=== PATIENT | female | born 1970 | race Caucasian/White ===

== ENCOUNTER 2019-07-13 08:41 | Outpatient (CLI) | payer OTHER, SELFPAY ==
--- NOTE | 2019-07-13 08:46 | US_ITS ---
WS: [id number] RIGHT DIGITAL MAMMOGRAPHY WITH CAD CLINICAL INFORMATION: R92.8 Other abnormal and inconclusive findings on diagnos... COMPARISON: June 09, 2019 TECHNIQUE: 2 views of the right breast were obtained. FINDINGS: The right breast is composed of heterogeneous fibroglandular density tissue, which can limit the dete ction of small underlying mass lesions. Previously described 12.5 mm lobulated asymmetric density upp er outer right breast compresses out on the spot compression views. Ultrasound is pending. ULTRASOUND BREAST RIGHT TECHNIQUE: Ultrasound right breast focused area of concern. CLINICAL INFORMATION: R92.8 Other abnormal and inconclusive findings on diagnos... COMPARISON: None. FINDINGS: Ultrasound right breast at the 2:00 position 3 cm from the nipple. Hypoechoic complex cyst with some internal debris and through transmission. Cyst measures 5.9 x 5.2 x 6.4 mm. This has a benign appeara nce. US/US breast RT limited* [id number] IMPRESSION: BI-RADS: 2-Benign FOLLOW UP: 1 Year Follow-up Recommend return to annual screening mammography.
--- NOTE | 2019-07-13 09:00 | MM_ITS ---
WS: [id number] RIGHT DIGITAL MAMMOGRAPHY WITH CAD CLINICAL INFORMATION: R92.8 Other abnormal and inconclusive findings on diagnos... COMPARISON: June 09, 2019 TECHNIQUE: 2 views of the right breast were obtained. FINDINGS: The right breast is composed of heterogeneous fibroglandular density tissue, which can limit the dete ction of small underlying mass lesions. Previously described 12.5 mm lobulated asymmetric density upp er outer right breast compresses out on the spot compression views. Ultrasound is pending. ULTRASOUND BREAST RIGHT TECHNIQUE: Ultrasound right breast focused area of concern. CLINICAL INFORMATION: R92.8 Other abnormal and inconclusive findings on diagnos... COMPARISON: None. FINDINGS: Ultrasound right breast at the 2:00 position 3 cm from the nipple. Hypoechoic complex cyst with some internal debris and through transmission. Cyst measures 5.9 x 5.2 x 6.4 mm. This has a benign appeara nce. MM/[place] [id number] IMPRESSION: BI-RADS: 2-Benign FOLLOW UP: 1 Year Follow-up Recommend return to annual screening mammography.
== END 2019-07-13 08:42 | disposition home or self-care (01) ==
LOC: RADSHAW 08:43
PROVIDERS: Family Provider Family Medicine; PCP Family Medicine; Visit Provider Family Medicine
DX: R92.8 Other abnormal and inconclusive findings on diagnostic imaging of breast (principal)
CPT/HCPCS: 76642; 77065

== ENCOUNTER 2020-03-16 09:13 | Emergency (ER) | payer OTHER, SELFPAY ==
[2020-03-16 09:23] VITALS: BMI 29.9
--- NOTE | 2020-03-16 09:46 | W.ED.ANIMALB ---
HPI - Animal Bite General: Chief Complaint: Animal Bite Stated Complaint: RIGHT MIDDLE FINGER DOG BITE Time Seen by Provider: 03/16/20 09:21 Source: patient Mode of arrival: ambulatory Limitations: no limitations History of Present Illness: HPI narrative: 49-year-old female patient presents to the emergency department with a dog bite to the right third digit. Patient states she has increased pain and swelling. Patient states this happened on Thursday. Patient states she saw her primary care physician was started on Augmentin. Patient's tetanus shot is up-to-date. Patient states she was getting some drainage from this finger but woke up today with increased pain and swelling. Patient denies any fever. Patient denies any pain to the tendon sheath area. MD complaint: animal bite Animal: dog Description of animal: household pet Mechanism: bite Location: other (Right hand third digit) Pain description: constant Context: unprovoked Associated symptoms: Reports no associated symptoms; Deny chills, fever(s) or headache(s) Treatments prior to arrival: wound dressing(s) and other (Augmentin) Related Data: Patient tetanus UTD: Yes Review of Systems General: Reports: 10 or more systems reviewed and unremarkable except in HPI and below Const: Denies: fever(s), chills or body aches Resp: Denies: dyspnea, productive cough or non-productive cough GI: Denies: abdominal pain, nausea or vomiting Musc: Denies: neck pain or back pain Skin/Breast: Reports: other (Patient has a what appears to be a dog bite to her right hand third digit at the PIP joint patient has erythematous edematous area there is some fluctuation and pointing noted at the PIP joint) Neuro: Denies: headache(s), numbness in extremities or weakness in extremities Psych: Denies: suicidal ideation or homicidal ideation PFS ED PFSH: Medical History Essential hypertension No pertinent past medical history Patient denies any past medical history of diabetes, heart, lung, liver, kidney, thyroid, bleeding, or clotting problems, PE/DVT. PCP: Dr. Conklin Surgical History History of removal of skin mole States that she has a small mole on her mons that was removed and it came back pre-malignant and so she had to have surgery for removal of a better margin denies any anesthesia problems. -This was performed in the [facility]. History of shoulder surgery Arthroscopic right shoulder surgery for torn biceps performed in October 2018 Status post unilateral salpingo-oophorectomy 12/30/2018--->Laparoscopic left salpingo-oophorectomy, drainage of right ovarian cyst, performed by Dr. Perez at [facility], [place], [place]. Pathology showed normal fallopian tube with benign ovarian cyst consistent with a follicular cyst. Family History Father Diabetes Stroke Mother Hypertension Denies family history of Colon cancer Ovarian cancer Heart disease Hyperlipidemia Breast cancer Uterine cancer Thyroid condition Social History Smoking and tobacco status: former smoker Alcohol intake: current Additional social history: - Tobacco Use: Smoked one cigar a month starting at age 35; quit in 2013 at the age of 40. Denies use of any tobacco products since then. 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 Physical Exam Const: COMMON NORMALS: no acute distress, average body habitus, patient oriented x3, no limitations, healthy appearing, alert and well nourished Resp: COMMON NORMALS: normal respiratory effort and No retractions Cardio: COMMON NORMALS: regular rate and regular rhythm RATE: regular rate RHYTHM: regular rhythm Extremity: RIGHT UPPER EXTREMITY: Yes hand & digits Right hand and digits: Yes inspection (Erythematous and edematous there is fluctuation and pointing noted to the PIP joint), Yes neurovascular exam (Neurovascularly intact) and Yes tendon exam (Tendon appears intact patient does not have any tendon sheath pain) Neuro: COMMON NORMALS: patient oriented x3 SENSORIUM/ORIENTATION: Yes alert Procedures Abscess I/D Site: hand (right 3rd digit) Local Anesthetic: lidocaine 1% Amount of anesthesia used (mL): 8 Technique: incised with #11 blade Amount of fluid expressed (mL): 5 MDM - Animal Bite MDM Narrative: Medical decision making narrative: Pt is well appearing non toxic and in no acute distress. Pt has fluctuance and pointing c/w abscess of the PIP joint to right 3rd digit. icision and drainge was performed please see procedure note. Pt is already taking Aygmentin and started this am. Pt is NVI distally pt denies pain to tenddon sheath. I will have patient continue antibiotics and return in 24-48 hours ffor wound recheck and packing removal. Tetanus UTD. Differential Diagnosis: Differential diagnosis animal bite: Likely bite by animal Medical Records: Attestation: I reviewed the patient's medical records. Lab Data: Attestation: I reviewed the patient's lab results. Discharge Plan Discharge Patient Disposition: Home Clinical Impression: Cellulitis of right middle finger Dog bite Qualifiers: Encounter type: initial encounter Qualified Code(s): W54.0XXA - Bitten by dog, initial encounter Condition: Stable Prescriptions: No Action losartan 25 mg tablet 25 mg PO ONCE RF: 0 amoxicillin-pot clavulanate [Augmentin] 875-125 mg tablet 1 tab PO BID Qty: 20 RF: 0 Contrave 8-90 mg tablet extended release See Rx Instructions PO QAM Qty: 70 RF: 0 Complete Multivitamin Tablet 1 tab PO DAILY RF: 0 vitamin B complex [B Complex-Vitamin B12] Tablet 1 tab PO DAILY RF: 0 ferrous sulfate PO RF: 0 Mirena 20 mcg/24 hours (5 yrs) 52 mg intrauterine device INTRAUTERI RF: 0 Discharge Orders: Discharge Order (Routine); Ordered 03/16/20 Ordered By: Sheila Whittington Referrals: Tram Conklin DO [Primary Care Provider] - Activity Restrictions/Additional Instructions: Please return to ER in 24-48 hours for wound recheck and packing removal or sooner if needed. Please continue to take antibiotics as prescribed Use warm compresses Coding Level of Care Code ED Manager Security for Chg Fwd Exam Expanded Problem Focused
[2020-03-16 10:36] VITALS: BP 148/90; PULSE 76; RESP 18; O2SAT 97
== END 2020-03-16 10:36 | disposition home or self-care (01) ==
PROVIDERS: Emergency Provider Registered Nurse; Family Provider Family Medicine; PCP Family Medicine
DX: S61.252A Open bite of right middle finger without damage to nail, initial encounter (principal); L03.011 Cellulitis of right finger; W54.0XXA Bitten by dog, initial encounter; Z87.891 Personal history of nicotine dependence; I10 Essential (primary) hypertension
CPT/HCPCS: 12345; 26010; 99281; 99282; A6446

== ENCOUNTER 2020-03-18 09:41 | Emergency (ER) | payer OTHER, SELFPAY ==
[2020-03-18 10:02] VITALS: BP 164/82; PULSE 63; RESP 18; TEMP 36.9; O2SAT 98; BMI 29.9
--- NOTE | 2020-03-18 10:08 | W.ED.RECABL ---
HPI - Recheck/Abnormal Lab/Rx General: Chief Complaint: Recheck/Abnormal Lab/Rx Stated Complaint: PACKING REMOVAL Time Seen by Provider: 03/18/20 09:59 Source: patient Mode of arrival: ambulatory Limitations: no limitations History of Present Illness: MD complaint: wound re-check Initial visit (ago): day(s) (2) Initial visit for: abscess Returns today for: wound recheck Symptoms since prior visit: no new symptoms and improved Associated symptoms: none Review of Systems General: Reports: 10 or more systems reviewed and unremarkable except in HPI and below Const: Denies: fever(s) or chills Resp: Denies: dyspnea or productive cough Musc: Denies: joint pain or joint swelling Skin/Breast: Reports: other (abscess to right 3rd digit ) PFSH ED PFSH: Medical History (Updated 03/18/20 @ 10:07 by Sheila Whittington) Essential hypertension No pertinent past medical history Patient denies any past medical history of diabetes, heart, lung, liver, kidney, thyroid, bleeding, or clotting problems, PE/DVT. PCP: Dr. Conklin Surgical History History of removal of skin mole States that she has a small mole on her mons that was removed and it came back pre-malignant and so she had to have surgery for removal of a better margin denies any anesthesia problems. -This was performed in the [facility]. History of shoulder surgery Arthroscopic right shoulder surgery for torn biceps performed in October 2018 Status post unilateral salpingo-oophorectomy 12/30/2018--->Laparoscopic left salpingo-oophorectomy, drainage of right ovarian cyst, performed by Dr. Perez at [facility], [place], [place]. Pathology showed normal fallopian tube with benign ovarian cyst consistent with a follicular cyst. Family History Father Diabetes Stroke Mother Hypertension Denies family history of Colon cancer Ovarian cancer Heart disease Hyperlipidemia Breast cancer Uterine cancer Thyroid condition Social History Smoking and tobacco status: former smoker Alcohol intake: current Additional social history: - Tobacco Use: Smoked one cigar a month starting at age 35; quit in 2013 at the age of 40. Denies use of any tobacco products since then. 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 Exam Const: COMMON NORMALS: no acute distress, average body habitus, patient oriented x3, no limitations, healthy appearing, alert and well nourished Extremity: RIGHT UPPER EXTREMITY: Yes hand & digits (3rd dgit - packing removed and erythema and edema is much improved ) Right hand and digits: Yes ROM exam (normal) and Yes neurovascular exam (NVI) Neuro: COMMON NORMALS: patient oriented x3 SENSORIUM/ORIENTATION: Yes alert Course Vital Signs: Vital signs: Vital Signs Temperature 98.4 F 03/18/20 10:02 Pulse Rate 63 03/18/20 10:02 Respiratory Rate 18 03/18/20 10:02 Blood Pressure 164/82 03/18/20 10:02 Pulse Oximetry 98 03/18/20 10:02 MDM - Recheck/Abnormal Lab/Rx MDM Narrative: Medical decision making narrative: Pt is well appearing non toxic and in no acute distress 3rd dgit - packing removed and erythema and edema is much improved Pt has good ROM Pt is NVI distally Pt states pain is very minimal Pt advised to continue her coarse of antibiotics Pt advised to keep clean and dry and use antibiotic ointment Discharge Plan Discharge Patient Disposition: Home Clinical Impression: Encounter for wound re-check Condition: Stable Prescriptions: No Action losartan 25 mg tablet 25 mg PO ONCE RF: 0 amoxicillin-pot clavulanate [Augmentin] 875-125 mg tablet 1 tab PO BID Qty: 20 RF: 0 Contrave 8-90 mg tablet extended release See Rx Instructions PO QAM Qty: 70 RF: 0 Complete Multivitamin Tablet 1 tab PO DAILY RF: 0 vitamin B complex [B Complex-Vitamin B12] Tablet 1 tab PO DAILY RF: 0 ferrous sulfate PO RF: 0 Mirena 20 mcg/24 hours (5 yrs) 52 mg intrauterine device INTRAUTERI RF: 0 Discharge Orders: Discharge Order (Routine); Ordered 03/18/20 Ordered By: Sheila Whittington Referrals: Tram Conklin DO [Primary Care Provider] - Discharge Diet: Advance as tolerated Discharge Activity: Resume usual activity Activity Restrictions/Additional Instructions: Please keep wound dry and clean and apply antibiotic ointment Please continue course of antibiotics until completed Please return with any worsening of infection swelling, fever, increased pain or any other concerning symptoms Coding Level of Care Code ED Car Tracer for Eli Cruz
== END 2020-03-18 10:11 | disposition home or self-care (01) ==
PROVIDERS: Emergency Provider Registered Nurse; PCP Family Medicine
DX: Z48.00 Encounter for change or removal of nonsurgical wound dressing (principal); I10 Essential (primary) hypertension; Z87.891 Personal history of nicotine dependence
CPT/HCPCS: 12345; 99281

== ENCOUNTER 2020-03-28 18:30 | Emergency (ER) | payer OTHER, SELFPAY ==
[2020-03-28 18:37] VITALS: BP 184/105; PULSE 73; RESP 18; TEMP 36.7; O2SAT 98; BMI 29.5
--- NOTE | 2020-03-28 21:19 | ED_ITS ---
HPI - Allergic Reaction General: Chief complaint: Allergic Reaction Stated complaint: SENT BY [facility]--POSS ANAPHYLACTIC SHOCK Time Seen by Provider: 03/28/20 21:14 Source: patient Mode of arrival: ambulatory Limitations: no limitations History of Present Illness: HPI narrative: 49-year-old female states that she started having a rash to her trunk and extremities roughly 3 to 4 hours ago. It is urticarial in appearance. She states that it is quite pruritic. She states she has had some slight tightness in her throat this improved. She states she is not came into contact with anything that she knows she is allergic to. Patient sent here from urgent care for her allergic reaction. She denies any shortness of breath currently. Denies any worsening improving factors. She did take 2 Benadryl's at home roughly 3 hours ago. Associated symptoms: Deny abdominal pain, nausea or vomiting Review of Systems Const: Denies: fever(s), chills, body aches or change in appetite Eyes: Denies: blurry vision or eye discomfort ENMT: Denies: throat pain or dental pain Card: Denies: chest pain Resp: Denies: dyspnea GI: Denies: abdominal pain, nausea, vomiting or diarrhea : Denies: dysuria Musc: Denies: neck pain or back pain Skin/Breast: Reports: rash and pruritus Neuro: Denies: headache(s) Psych: Denies: depression Navi/Lymph: Denies: easy bruising All/Imm: Reports: urticaria PFSH ED PFSH: Medical History Essential hypertension No pertinent past medical history Patient denies any past medical history of diabetes, heart, lung, liver, kidney, thyroid, bleeding, or clotting problems, PE/DVT. PCP: Dr. Conklin Surgical History History of removal of skin mole States that she has a small mole on her mons that was removed and it came back pre-malignant and so she had to have surgery for removal of a better margin denies any anesthesia problems. -This was performed in the [facility]. History of shoulder surgery Arthroscopic right shoulder surgery for torn biceps performed in October 2018 Status post unilateral salpingo-oophorectomy 12/30/2018--->Laparoscopic left salpingo-oophorectomy, drainage of right ovarian cyst, performed by Dr. Perez at [facility], [place], [place]. Pathology showed normal fallopian tube with benign ovarian cyst consistent with a follicular cyst. Family History Father Diabetes Stroke Mother Hypertension Denies family history of Colon cancer Ovarian cancer Heart disease Hyperlipidemia Breast cancer Uterine cancer Thyroid condition Social History Smoking and tobacco status: former smoker Alcohol intake: current Additional social history: - Tobacco Use: Smoked one cigar a month starting at age 35; quit in 2013 at the age of 40. Denies use of any tobacco products since then. 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 Exam Const: COMMON NORMALS: no acute distress, patient oriented x3 and healthy appearing HENMT: COMMON NORMALS: normocephalic and atraumatic HEAD & SCALP: normocephalic and atraumatic Eye: COMMON NORMALS: Equal, round and reactive pupils present and EOMs intact bilaterally PUPIL: Yes Equal, round and reactive pupils present Neck/C-Spine: COMMON NORMALS: full ROM and supple Chest: COMMONS NORMALS: normal inspection of the chest and normal palpation of entire chest wall Resp: COMMON NORMALS: normal respiratory effort, No retractions, No use of accessory muscles and clear to auscultation bilaterally AUSCULTATION: clear to auscultation bilaterally Cardio: COMMON NORMALS: regular rate, regular rhythm and No murmurs present (Cardio) RATE: regular rate RHYTHM: regular rhythm GI: COMMON NORMALS: Normal to inspection, nondistended, normoactive bowel sounds present, Soft to palpation, non-tender and no masses PALPATION: Yes Soft to palpation Extremity: COMMON NORMALS: normal to inspection and full ROM Neuro: COMMON NORMALS: patient oriented x3, moves all extremities and no focal motor deficits Psych: COMMON NORMALS: mental status grossly normal, Normal thought process present and cooperative THOUGHT PROCESS: Normal thought process present Skin: COMMON NORMALS: no wounds NARRATIVE SKIN EXAM: Urticarial rash to trunk and extremities Course Vital Signs: Vital signs: Vital Signs Temperature 98.1 F 03/28/20 18:37 Pulse Rate 78 03/28/20 21:56 Respiratory Rate 18 03/28/20 21:56 Blood Pressure 159/90 03/28/20 21:56 Pulse Oximetry 97 03/28/20 21:58 MDM - Allergic Reaction MDM Narrative: Medical decision making narrative: Patient presents here with rash is urticarial in nature and likely allergic. She has no signs of systemic symptoms. Patient is much improved after Benadryl and Medrol. We will place her on steroids at home and she is to follow-up with PCP and return if worsening. Discharge Plan Discharge Patient Disposition: Home Clinical Impression: Urticaria Condition: Stable Prescriptions: New prednisone 50 mg tablet 50 mg PO DAILY Qty: 5 RF: 0 No Action losartan 25 mg tablet 25 mg PO ONCE RF: 0 amoxicillin-pot clavulanate [Augmentin] 875-125 mg tablet 1 tab PO BID Qty: 20 RF: 0 Contrave 8-90 mg tablet extended release See Rx Instructions PO QAM Qty: 70 RF: 0 Complete Multivitamin Tablet 1 tab PO DAILY RF: 0 vitamin B complex [B Complex-Vitamin B12] Tablet 1 tab PO DAILY RF: 0 ferrous sulfate PO RF: 0 Mirena 20 mcg/24 hours (5 yrs) 52 mg intrauterine device INTRAUTERI RF: 0 Discharge Orders: Discharge Order (Routine); Ordered 03/28/20 Ordered By: Guille Bunch Referrals: Tram Conklin DO [Primary Care Provider] - 1-3 days Discharge Diet: Advance as tolerated Discharge Activity: Resume usual activity Patient Instructions: Urticaria (ED) Coding Level of Care Code ED Biology Faculty Member for Rachelg Fwd Exam Comprehensive
[2020-03-28] MEDS: diphenhydrAMINE 50 mg/mL SDV 1mL IVP (21:35)
[2020-03-28] MEDS: famotidine 20 mg/2 mL INJ 40 MG IVP (21:36)
[2020-03-28 21:56] VITALS: BP 159/90; PULSE 78; RESP 18; O2SAT 97
[2020-03-28 21:58] VITALS: O2SAT 97
[2020-03-28 22:27] VITALS: O2SAT 97
== END 2020-03-28 22:28 | disposition home or self-care (01) ==
PROVIDERS: Emergency Provider Emergency Medicine; PCP Family Medicine
DX: L50.9 Urticaria, unspecified (principal); I10 Essential (primary) hypertension; Z87.891 Personal history of nicotine dependence
CPT/HCPCS: 12345; 96374; 96375; 99283; J1200; J2930; J3490

== ENCOUNTER 2020-07-18 08:23 | Outpatient (CLI) | payer OTHER, SELFPAY ==
--- NOTE | 2020-07-18 08:31 | MM_ITS ---
WS: [id number] BILATERAL DIGITAL SCREENING MAMMOGRAPHY WITH CAD CLINICAL INFORMATION: SCREEN HISTORY: Screening mammogram. No current complaints. COMPARISON: July 13, 2019 and 06/09/2019 TECHNIQUE: Bilateral CC and MLO views. FINDINGS: The breasts are composed of heterogeneous fibroglandular density tissue, which can limit the detectio n of small underlying mass lesions. No suspicious mass, asymmetry, calcifications, or architectural d istortion. No evidence of malignancy. MM/[place] [id number] IMPRESSION: BI-RADS: 1-Negative FOLLOW UP: 1 Year Follow-up Recommend return to annual screening mammography.
== END 2020-07-18 08:24 | disposition home or self-care (01) ==
LOC: RADSHAW 08:25
PROVIDERS: PCP Family Medicine; Visit Provider Family Medicine
DX: Z12.31 Encounter for screening mammogram for malignant neoplasm of breast (principal)
CPT/HCPCS: 77067

== ENCOUNTER → 2021-01-01 08:26 | Outpatient (BNVA) | payer OTHER, SELFPAY | PROVIDERS: PCP Family Medicine; Visit Provider Family Medicine | DX: I10 Essential (primary) hypertension (principal); E66.3 Overweight | CPT/HCPCS: 80053; 80061; 82043; 85025 ==

== ENCOUNTER → 2021-01-02 15:49 | Outpatient (BNVA) | payer OTHER, SELFPAY | PROVIDERS: PCP Family Medicine; Visit Provider Surgery | DX: Z12.11 Encounter for screening for malignant neoplasm of colon (principal) | CPT/HCPCS: 87635 ==

== ENCOUNTER 2021-01-07 06:38 | Day surgery (SDC) | payer OTHER, SELFPAY ==
[2021-01-03 11:49] VITALS: BMI 27.1
[2021-01-07] VITALS (7 sets, daily range): BP systolic 109–130; BP diastolic 76–85; PULSE 64–92; RESP 16–18; TEMP 36.3–36.7; O2SAT 97–100
--- NOTE | 2021-01-07 07:03 | ANES.PREANE2 ---
Pre-Anesthetic Assessment Pre-Anesthetic Assessment: Height/Weight: Height 1.6 m Weight 69.4 kg Preop Diagnosis: Screening colonoscopy Proposed Procedure: Operation Date: 01/07/21 07:30 Proposed Procedures p Colonoscopy 91145 [id number](Not Applicable) - Sarmad Smiley MD Was Beta Elba taken within 24 hours: N/A Was Clonidine taken within 24 hours: N/A Social: Social History: No alcohol and No tobacco Exam: Pre-Anes Outpt Exam: alert, oriented x 3, clear to auscultation bilaterally and regular rate & rhythm Airway: Submandibular: WNL Cervical ROM: WNL MP: 2 Dentition: Full CV/HEM: CV/HEM: HTN Anesthetic Plan: ASA status: 2 Anesthesia: MAC Risk of > 500 ml blood loss (7ml/kg in children): No PFSH Anesthesia PFSH: Medical History Essential hypertension Diagnosed in 2014 and is currently on medication--they are currently adjusting medications to get better control. This is being managed by PMD. Does not see a data communications software consultant. No pertinent past medical history Denies diabetes, asthma, seizures, DVT/PE PCP: Dr. Conklin Surgical History History of removal of skin mole States that she has a small mole on her mons that was removed and it came back pre-malignant and so she had to have surgery for removal of a better margin denies any anesthesia problems. -This was performed in the [facility]. History of shoulder surgery Arthroscopic right shoulder surgery for torn biceps performed in October 2018 Status post unilateral salpingo-oophorectomy 12/30/2018--->Laparoscopic left salpingo-oophorectomy, drainage of right ovarian cyst, performed by Dr. Perez at [facility], [place], [place]. Pathology showed normal fallopian tube with benign ovarian cyst consistent with a follicular cyst. Family History Father Diabetes Stroke Mother Hypertension Denies family history of Colon cancer Ovarian cancer Heart disease Hyperlipidemia Breast cancer Uterine cancer Thyroid condition Social History Smoking and tobacco status: never smoked Alcohol intake: current Data Anesthesia Cardiac Studies: No Data to Display
--- NOTE | 2021-01-07 07:28 | P.HP_ITS ---
Same Day Surgery H&P Indication for Procedure/HPI DATE OF PROCEDURE: January 07, 2021 CHIEF COMPLAINT/INDICATIONFOR SURGICAL PROCEDURE: Screening colonoscopy PREOP DIAGNOSIS: Screening colonoscopy PLANNED PROCEDRUE: Operation Date: 01/07/21 07:30 Proposed Procedures p Colonoscopy 40768 [id number](Not Applicable) - Sarmad Smiley MD This is a pleasant 50 years old female patient presents to my practice with concern about hemorrhoidal disease and also reports to me that she is due for screening colonoscopy as she never had one before, denies bleeding per rectum and reports no history of colon cancer. Patient reports that she had hemorrhoids for a long years and intermittently causes some irritation and bothering her. Interim history 01/07/2021 Patient comes today for screening colonoscopy ROS All systems have been reviewed negative except as per the above or per problem list Medications/Allergies* Home Medications Medication Instructions Recorded Confirmed Type ferrous sulfate [High Potency Iron] 325 mg PO DAILY 10/17/19 01/03/21 History levonorgestrel 20 mcg/24 hours (6 20 mcg INTRAUTERI DIRECTED 10/17/19 01/03/21 History yrs) 52 mg intrauterine device multivitamin,[id number]-[id number] 1 tab PO DAILY 10/17/19 01/03/21 History vitamin B complex 1 tab PO DAILY 10/17/19 01/03/21 History losartan 25 mg PO DAILY 01/03/21 01/03/21 History Allergies/Adverse Reactions Allergy/AdvReac Type Severity Reaction Status Date / Time Sulfa (Sulfonamide Allergy ALGY-Rash Verified 01/07/21 07:29 Antibiotics) Pertinent History/Comorbid Conditions* Medical History (Updated 12/07/20 @ 17:19 by Sarmad Smiley MD) Essential hypertension Diagnosed in 2014 and is currently on medication--they are currently adjusting medications to get better control. This is being managed by PMD. Does not see a kiln firer helper. No pertinent past medical history Denies diabetes, asthma, seizures, DVT/PE PCP: Dr. Conklin Surgical History (Updated 10/17/19 @ 12:23 by Jean-Claude Salgado MD) History of removal of skin mole States that she has a small mole on her mons that was removed and it came back pre-malignant and so she had to have surgery for removal of a better margin denies any anesthesia problems. -This was performed in the [facility]. History of shoulder surgery Arthroscopic right shoulder surgery for torn biceps performed in October 2018 Status post unilateral salpingo-oophorectomy 12/30/2018--->Laparoscopic left salpingo-oophorectomy, drainage of right ovarian cyst, performed by Dr. Perez at [facility], [place], [place]. Pathology showed normal fallopian tube with benign ovarian cyst consistent with a follicular cyst. Family History (Updated 10/17/19 @ 08:11 by Tram Aleman RN) Diabetes Father Hypertension Mother Stroke Father Denies family history of Colon cancer Ovarian cancer Heart disease Hyperlipidemia Breast cancer Uterine cancer Thyroid condition Social History Smoking and tobacco status: never smoked Alcohol intake: current Pertinent Exam Findings alert, oriented x 3, clear to auscultation bilaterally, regular rate & rhythm and procedure specific exam findings (Abdominal examination nontender nondistended soft) Recommendations Surgery/Procedure today (Screening colonoscopy) Other Plans: Plan of care; After thorough history and physical examination and reviewing the chart, plan to perform screening colonoscopy. I discussed with the patient in details the risks,benefits,alternatives and indications.The risk of aspiration, bleeding, soft tissue injury, perforation of the colon and other potential concomitant complications were explained to the patient in details,also the potential need for Laproscoy/Laparotomy to repair any related complications including but not limited to colectomy and or Closotomy.The patient understood this well and did agree to proceed. Rationale was carefully and clearly discussed with the patient.Appropriate informed consent have been reviewed and signed All questions have been answered and all concerns have been addressed to patient's satisfaction. Verbal and written Instructions were given to the patient for colonoscopy prep Coding Level of Care Code Acute [employer]
[2021-01-07] MEDS: sodium chloride 0.9% 1,000 ML 30 ML IV (07:40)
[2021-01-07 07:41] LABS: OR HCG Qualitative Urine Negative (Negative)
--- NOTE | 2021-01-07 16:40 | ANE.PACU2 ---
Inpatient post-anesthesia follow up: Airway intact: Yes Vital signs: Temperature 97.3 F Pulse Rate 64 Respiratory Rate 16 Blood Pressure 115/85 Pulse Oximetry 100 Oxygen Delivery Me thod Room Air Oxygen Flow Rate Fraction of Inspir ed Oxygen Hydration adequate: Yes Nausea and vomiting: No Pain level: 1 Mental status: Baseline
== END 2021-01-07 08:43 | disposition home or self-care (01) ==
PROVIDERS: Anesthesiology; PCP Family Medicine; Visit Provider Surgery
PROC: 0DJD8ZZ Inspection of Lower Intestinal Tract, Via Natural or Artificial Opening Endoscopic (ICD-10-PCS; CPT 45378; principal; 2021-01-07 07:30)
DX: Z12.11 Encounter for screening for malignant neoplasm of colon (principal); K62.0 Anal polyp; K64.4 Residual hemorrhoidal skin tags; K57.30 Diverticulosis of large intestine without perforation or abscess without bleeding; I10 Essential (primary) hypertension; Z82.49 Family history of ischemic heart disease and other diseases of the circulatory system; Z83.3 Family history of diabetes mellitus; Z82.3 Family history of stroke
CPT/HCPCS: 45380; 81025; 84703; 88304; J2704; J3490; J7030

== ENCOUNTER → 2021-01-08 08:49 | Outpatient (BNVA) | payer OTHER, SELFPAY | PROVIDERS: PCP Family Medicine; Visit Provider Family Medicine | DX: E83.51 Hypocalcemia (principal) | CPT/HCPCS: 82310; 83970 ==

== ENCOUNTER → 2021-12-31 12:19 | Outpatient (BNVA) | payer BC, SELFPAY | PROVIDERS: PCP Family Medicine; Visit Provider Family Medicine | DX: I10 Essential (primary) hypertension (principal); K57.92 Diverticulitis of intestine, part unspecified, without perforation or abscess without bleeding | CPT/HCPCS: 80053; 80061; 82043; 85025 ==

== ENCOUNTER → 2022-01-23 11:33 | Outpatient (BNVA) | payer BC, SELFPAY | PROVIDERS: PCP Family Medicine; Visit Provider Family Medicine | DX: E66.3 Overweight (principal); Z01.89 Encounter for other specified special examinations | CPT/HCPCS: 83036 ==

== ENCOUNTER → 2023-01-16 08:16 | Outpatient (BNVA) | payer BC, SELFPAY | PROVIDERS: PCP Family Medicine; Visit Provider Family Medicine | DX: I10 Essential (primary) hypertension (principal) | CPT/HCPCS: 80053; 80061; 82043; 83036; 85025 ==

== ENCOUNTER → 2023-07-10 10:37 | Outpatient (BNVA) | payer BC, SELFPAY | PROVIDERS: PCP Family Medicine; Visit Provider Family Medicine | DX: I10 Essential (primary) hypertension (principal) | CPT/HCPCS: 80048 ==